=== PATIENT | female | born 1935 | race Caucasian/White ===

== ENCOUNTER 2017-01-31 14:46 | Emergency (ER) | payer MEDICARE, OTHER ==
[~2017-01-31] VITALS: Ht 160 cm; Wt 60.0 kg
[2017-01-31 15:01] VITALS: RESP 17; O2SAT 98
[2017-01-31 16:11] VITALS: BP 131/60; PULSE 67; RESP 17; TEMP 97.8; O2SAT 99
[2017-01-31] MEDS ORDERED: SODIUM CHLORID 0.9% 500 ML INJ 500 ML IV ONE (16:15)
--- NOTE | 2017-01-31 16:15 | PD ---
HPI Chief Complaint: Syncope/Near-Syncope Time Seen by Provider: 14:58 Travel History International Travel<30 days: No Contact w/Intl Traveler<30days: No Traveled to known affect area: No History of Present Illness HPI This is an 81-year-old female with a history of spasticity, who presents today via EMS after she had a near syncopal episode. According to the paramedics, she was sitting outside her longterm in her wheelchair and when she came inside she nearly fell forward in the chair. There is no reported true syncope. She was noted to have a low blood pressure when paramedics arrived. They gave her a fluid bolus which brought her blood pressure back up into the 120 systolic. The patient denied any chest pain, chest pressure. There is no reported headache. Patient also has a history of seizure disorder. There is no reported seizures at the time of the episode. She recalls the whole event. PFSH Past Medical History ?: Not Social History Tobacco Use: No Allergies-Medications (Allergen,Severity, Reaction): Coded Allergies: lidocaine (Verified Allergy, Intermediate, hives, 01/31/17) Sulfa (Sulfonamide Antibiotics) (Verified Allergy, Unknown, hives, 01/31/17 ) Reported Meds & Prescriptions Reported Meds & Active Scripts Active Cefuroxime (Cefuroxime Axetil) 250 Mg Tab 250 Mg PO BID 7 Days Reported Sinemet (Carbidopa/Levodopa) 25-250 Mg Tab 1 Tab PO Q8HR Mirtazapine 15 Mg Tab 15 Mg PO HS Mapap (Acetaminophen) 325 Mg Tab 650 Mg PO Q4-6H PRN Multiple Vitamin 1 Tab 1 Tab PO DAILY Sertraline (Sertraline HCl) 50 Mg Tab 50 Mg PO DAILY Dilantin (Phenytoin Extended) 100 Mg Cap 200 Mg PO HS Lisinopril 5 Mg Tab 5 Mg PO DAILY Donepezil 5 Mg Tab 5 Mg PO HS Review of Systems Except as stated in HPI: all other systems reviewed are Neg General / Constitutional: No: Fever, Chills HENT: No: Headaches, Neck Pain Cardiovascular: No: Chest Pain or Discomfort, Palpitations Respiratory: No: Cough, Shortness of Breath Gastrointestinal: No: Nausea, Vomiting, Abdominal Pain Genitourinary: No: Nocturia, Incontinence Musculoskeletal: No: Weakness, Pain Neurologic: Positive: Weakness (generalized), Syncope (near syncope), No: Headache, Change in Mentation, Incontinence Physical Exam Narrative GENERAL: Well-nourished, well-developed patient, in no acute distress. SKIN: Focused skin assessment warm/dry. HEAD: Normocephalic/atraumatic. EYES: No scleral icterus. No injection or drainage. NECK: Supple, trachea midline. No JVD or lymphadenopathy. CARDIOVASCULAR: Regular rate and rhythm without murmurs, gallops, or rubs. RESPIRATORY: Breath sounds equal bilaterally. No accessory muscle use. GASTROINTESTINAL: Abdomen soft, non-tender, nondistended. No rebound or guarding. MUSCULOSKELETAL: No cyanosis, or edema. NEUROLOGICAL: Awake and alert. Cranial nerves II through XII intact. Motor grossly within normal limits. Five out of 5 muscle strength in all muscle groups. Normal speech. Data Data Last Documented VS Vital Signs Date Time Temp Pulse Resp B/P (MAP) Pulse Ox O2 Delivery O2 Flow Rate FiO2 01/31/17 16:11 97.8 67 17 131/60 (83) 99 Room Air Orders Orders Electrocardiogram (01/31/17 14:58) Basic Metabolic Panel (Bmp) (01/31/17 14:58) Complete Blood Count With Diff (01/31/17 14:58) Ckmb (Isoenzyme) Profile (01/31/17 14:58) Troponin I (01/31/17 14:58) Urinalysis - C+S If Indicated (01/31/17 14:58) Chest, Single Ap (01/31/17 14:58) Ecg Monitoring (01/31/17 14:58) Iv Access Insert/Monitor (01/31/17 14:58) Oximetry (01/31/17 14:58) Sodium Chlorid 0.9% 500 Ml Inj (Ns 500 M (01/31/17 16:15) Urine Culture (01/31/17 15:30) Ceftriaxone Inj (Rocephin Inj) (01/31/17 17:15) Labs Laboratory Tests Test 01/31/17 15:20 01/31/17 15:30 White Blood Count 5.1 TH/MM3 Red Blood Count 3.59 MIL/MM3 Hemoglobin 12.1 GM/DL Hematocrit 35.8 % Mean Corpuscular Volume 99.8 FL Mean Corpuscular Hemoglobin 33.6 PG Mean Corpuscular Hemoglobin Concent 33.7 % Red Cell Distribution Width 13.2 % Platelet Count 199 TH/MM3 Mean Platelet Volume 8.0 FL Neutrophils (%) (Auto) 59.8 % Lymphocytes (%) (Auto) 30.7 % Monocytes (%) (Auto) 7.0 % Eosinophils (%) (Auto) 1.4 % Basophils (%) (Auto) 1.1 % Neutrophils # (Auto) 3.1 TH/MM3 Lymphocytes # (Auto) 1.6 TH/MM3 Monocytes # (Auto) 0.4 TH/MM3 Eosinophils # (Auto) 0.1 TH/MM3 Basophils # (Auto) 0.1 TH/MM3 CBC Comment DIFF FINAL Differential Comment Blood Urea Nitrogen 15 MG/DL Creatinine 0.63 MG/DL Random Glucose 99 MG/DL Calcium Level 8.2 MG/DL Sodium Level 139 MEQ/L Potassium Level 3.9 MEQ/L Chloride Level 106 MEQ/L Carbon Dioxide Level 27.0 MEQ/L Anion Gap 6 MEQ/L Estimat Glomerular Filtration Rate 91 ML/MIN Total Creatine Kinase 57 U/L Troponin I LESS THAN 0.02 NG/ML Urine Color YELLOW Urine Turbidity HAZY Urine pH 6.5 Urine Specific Sachse 1.014 Urine Protein NEG mg/dL Urine Glucose (UA) NEG mg/dL Urine Ketones NEG mg/dL Urine Occult Blood TRACE Urine Nitrite POS Urine Bilirubin NEG Urine Urobilinogen LESS THAN 2.0 MG/DL Urine Leukocyte Esterase LARGE Urine RBC 3 /hpf Urine WBC 64 /hpf Urine Squamous Epithelial Cells 3 /hpf Urine Transitional Epithelial Cells <1 /hpf Urine Bacteria RARE /hpf Urine Hyaline Casts 6 /lpf Microscopic Urinalysis Comment CULTURE INDICATED MDM Medical Decision Making Medical Screen Exam Complete: Yes Emergency Medical Condition: Yes Differential Diagnosis Cardiac arrhythmia versus vasovagal versus dehydration versus TIA Narrative Course 81-year-old female presents from the longterm after having a near syncopal episode. The patient apparently had a low blood pressure 1 paramedics arrived. They gave her 300 cc bolus of fluid which brought her pressure into the 120s systolic. The patient is awake. Urinalysis shows UTI. She's been given 1 g of Rocephin. Daughter was at the bedside states that she was recently started on Aricept 2 days ago. She was also had her Sinemet increased to 3 times daily. I spoke with Dr. Kruse, neurologist covering for her neurologist, Dr. Isidoro Noguera, who recommended holding the Aricept. He recommended we get orthostatic blood pressures while at the longterm. She should follow up with Dr. Noguera within one week. Diagnosis Primary Impression: Near syncope Additional Impressions: Cystitis possible adverse medication reaction History of Parkinson's disease Additional Instructions: Have nursing facility check orthostatic blood pressures daily. Follow up with Dr. Noguera in one week. Hold Aricept until told to restart by Dr. Noguera. Med/Other Pt SpecificInfo: Prescription(s) given Scripts Cefuroxime (Cefuroxime) 250 Mg Tab 250 MG PO BID for Infection for 7 Days, #14 TAB 0 Refills Prov: Vicente Headley MD 01/31/17 Disposition: 01 DISCHARGE HOME Condition: Stable Vicente Headley MD Jan 31, 2017 16:15
[2017-01-31 16:16] LABS: AUTOMATED NEUTROPHIL # 3.1 TH/MM3 (1.8-7.7); BASOPHIL # 0.1 TH/MM3 (0-0.2); BASOPHIL % 1.1 % (0.0-2.0); EOSINOPHIL # 0.1 TH/MM3 (0-0.4); EOSINOPHIL % 1.4 % (0.0-4.0); HEMATOCRIT 35.8 % (35.0-46.0); HEMO FLAGS DIFF FINAL; LYMPH % 30.7 % (9.0-44.0); LYMPHOCYTE # 1.6 TH/MM3 (1.0-4.8); MEAN CELL VOLUME 99.8 FL (80.0-100.0); MEAN CORPUSCULAR HEMOGLOBIN 33.6 PG (27.0-34.0); MEAN CORPUSCULAR HGB CONC 33.7 % (32.0-36.0); NEUT % 59.8 % (16.0-70.0); PLATELET COUNT 199 TH/MM3 (150-450); RED BLOOD COUNT 3.59 MIL/MM3 (4.00-5.30); RED CELL DISTRIBUTION WIDTH 13.2 % (11.6-17.2); WHITE BLOOD COUNT 5.1 TH/MM3 (4.0-11.0)
[2017-01-31 16:19] LABS: BACTERIA, URINE RARE /hpf; BLOOD, URINE TRACE (NEG); COMMENT (UR) CULTURE INDICATED; CULTURE IF INDICATED CULTURE INDICATED; GLUCOSE,URINE NEG (NEG); HYALINE CAST, URINE 6 /lpf (RARE); KETONE, URINE NEG (NEG); NITRITE,URINE POS (NEG); PH, URINE 6.5 (5.0-8.5); SQUAMOUS EPITHELIAL CELL URINE 3 /hpf (0-5); TRANSITIONAL EPI CELLS, URINE <1 /hpf; URINE COLOR YELLOW (YELLW/STRAW)
[2017-01-31 16:32] LABS: ANION GAP 6 MEQ/L (5-15); BLOOD UREA NITROGEN 15 MG/DL (7-18); CHLORIDE 106 MEQ/L (98-107); CREATINE KINASE 57 U/L (26-192); GLOMERULAR FILTRATION RATE 91 ML/MIN (>89); POTASSIUM 3.9 MEQ/L (3.5-5.1); SODIUM (NA) 139 MEQ/L (136-145)
[2017-01-31] MEDS ORDERED: DONE5TAB7 PO (17:01)
[2017-01-31] MEDS ORDERED: ARIC23TA PO (17:01)
[2017-01-31] MEDS ORDERED: LISI-519 PO (17:11)
[2017-01-31] MEDS ORDERED: DILA100C PO (17:11)
[2017-01-31] MEDS ORDERED: MAPA325T PO (17:11)
[2017-01-31] MEDS ORDERED: MULTTAB67 PO (17:11)
[2017-01-31] MEDS ORDERED: SERT-132 PO (17:11)
[2017-01-31] MEDS ORDERED: MIRTA15 PO (17:11)
[2017-01-31] MEDS ORDERED: [UNRECOGNIZED DRUG - CODE] PO (17:12)
[2017-01-31] MEDS ORDERED: cefTRIAXone INJ 1,000 MG in SODIUM CHLORIDE 0.9% INJ 100 ML IV ONE (17:15)
[2017-01-31] MEDS ORDERED: CEFU250T PO (17:25)
--- NOTE | 2017-01-31 18:15 | RADRPT ---
EXAM DATE/TIME: 01/31/2017 17:52 [facility] COMPARISON: No previous studies available for comparison. INDICATIONS : Palpitation. MEDICAL HISTORY : None. SURGICAL HISTORY : None. ENCOUNTER: Initial ACUITY: 1 day PAIN SCORE: 0/10 LOCATION: Bilateral chest FINDINGS: A single view of the chest demonstrates the lungs to be symmetrically aerated without evidence of mas s, infiltrate or effusion. The cardiomediastinal contours are unremarkable. Osseous structures are intact. CONCLUSION: No acute disease. Raffi Castaneda MD on January 31, 2017 at 18:14 Board Certified Radiologist. This report was verified electronically.
--- NOTE | 2017-02-01 05:11 | EKG ---
Date Performed: 01/31/2017 Time Performed: 15:30:12 PTAGE: 81 years EKG: Sinus rhythm PATTERN CONSISTENT WITH PULMONARY DISEASE INCOMPLETE RIGHT BUNDLE BRANCH BLOCK LEFT ANTERIOR FASCICU LAR BLOCK ABNORMAL ECG NO PREVIOUS TRACING DOCTOR: Devendra Wilkes Interpretating Date/Time 02/01/2017 05:06:23
== END 2017-01-31 20:36 | disposition home or self-care (01) ==
LOC: NEPC 14:46
DX: R55 Syncope and collapse (principal); N30.90 Cystitis, unspecified without hematuria; R53.1 Weakness; G20 Parkinson's disease; G40.909 Epilepsy, unspecified, not intractable, without status epilepticus; B96.20 Unspecified Escherichia coli [E. coli] as the cause of diseases classified elsewhere; I45.2 Bifascicular block; R94.31 Abnormal electrocardiogram [ECG] [EKG]; Z79.899 Other long term (current) drug therapy
CPT/HCPCS: 71010; 80048; 81001; 82550; 84484; 85025; 87077; 87086; 87186; 93005; 96361; 96365; 99285; J0696; J7040

== ENCOUNTER 2017-05-29 18:05 | Inpatient (IN) | payer MEDICARE, OTHER ==
[~2017-05-29] VITALS: Ht 160 cm; Wt 77.1 kg
[~2017-05-29 18:05] MED LIST: CEFU250T PO; DILA100C PO; DONE5TAB7 PO; LISI-519 PO; MAPA325T PO; MIRTA15 PO; MULTTAB67 PO; SERT-132 PO; [UNRECOGNIZED DRUG - CODE] PO
[2017-05-29 18:11] VITALS: BP 103/55; PULSE 97; RESP 16; TEMP 98.5
[2017-05-29 18:28] VITALS: O2SAT 91
[2017-05-29] MEDS ORDERED: SODIUM CHLORIDE 0.9% FLUSH 10 ML FLUSH IVF PRN (18:30)
[2017-05-29 18:42] LABS: AUTOMATED NEUTROPHIL # 10.9 TH/MM3 (1.8-7.7); BASOPHIL % 0.3 % (0.0-2.0); EOSINOPHIL # 0.1 TH/MM3 (0-0.4); EOSINOPHIL % 0.6 % (0.0-4.0); HEMATOCRIT 34.6 % (35.0-46.0); LYMPH % 9.5 % (9.0-44.0); LYMPHOCYTE # 1.3 TH/MM3 (1.0-4.8); MEAN CELL VOLUME 100.1 FL (80.0-100.0); MEAN CORPUSCULAR HEMOGLOBIN 34.8 PG (27.0-34.0); MEAN CORPUSCULAR HGB CONC 34.8 % (32.0-36.0); MEAN PLATELET VOLUME 8.2 FL (7.0-11.0); MONO % 10.1 % (0.0-8.0); MONOCYTE # 1.4 TH/MM3 (0-0.9); NEUT % 79.5 % (16.0-70.0); PLATELET COUNT 210 TH/MM3 (150-450); RED BLOOD COUNT 3.46 MIL/MM3 (4.00-5.30); RED CELL DISTRIBUTION WIDTH 13.5 % (11.6-17.2); WHITE BLOOD COUNT 13.8 TH/MM3 (4.0-11.0)
[2017-05-29 18:54] LABS: INTERNATIONAL NORMALIZED RATIO 1.1 RATIO; PROTHROMBIN TIME - PATIENT 10.9 SEC (9.8-11.6)
--- NOTE | 2017-05-29 19:03 | RADRPT ---
EXAM DATE/TIME: 05/29/2017 18:37 [facility] COMPARISON: CHEST SINGLE AP, January 31, 2017, 17:52. INDICATIONS : Hip pain post fall. MEDICAL HISTORY : None. SURGICAL HISTORY : None. ENCOUNTER: Initial ACUITY: 1 day PAIN SCORE: 0/10 LOCATION: Bilateral chest FINDINGS: Bilateral pulmonary infiltrates are noted consistent with moderate pulmonary edema versus pneumonia. Clinical correlation is recommended. The heart is stable. Degenerative changes and scoliosis of the t horacolumbar spine are noted. CONCLUSION: 1. Bilateral pulmonary infiltrates consistent with moderate pulmonary edema versus pneumonia. Clinica l correlation is recommended. 2. Degenerative changes and scoliosis of the thoracolumbar spine. Manuel Cardona MD on May 29, 2017 at 18:59 Board Certified Radiologist. This report was verified electronically.
[2017-05-29 19:12] LABS: ALT (GPT) LESS THAN 6 U/L (10-53)
[2017-05-29 19:14] LABS: ALKALINE PHOSPHATASE 118 U/L (45-117); TOTAL BILIRUBIN ADULT 1.2 MG/DL (0.2-1.0); TOTAL PROTEIN 6.8 GM/DL (6.4-8.2)
[2017-05-29 19:24] LABS: ALBUMIN 2.6 GM/DL (3.4-5.0); AST (GOT) 40 U/L (15-37); BICARBONATE 25.7 MEQ/L (21.0-32.0); BLOOD UREA NITROGEN 43 MG/DL (7-18); CALCIUM 8.5 MG/DL (8.5-10.1); CHLORIDE 99 MEQ/L (98-107); CREATININE 1.67 MG/DL (0.50-1.00); GLOMERULAR FILTRATION RATE 29 ML/MIN (>89); GLUCOSE,RANDOM 111 MG/DL (74-106); SODIUM (NA) 131 MEQ/L (136-145)
--- NOTE | 2017-05-29 19:42 | RADRPT ---
EXAM DATE/TIME: 05/29/2017 18:37 [facility] COMPARISON: No previous studies available for comparison. INDICATIONS : Hip pain post fall. MEDICAL HISTORY : None. SURGICAL HISTORY : None. ENCOUNTER: Initial ACUITY: 1 day PAIN SCORE: 10/10 LOCATION: Left Hip. FINDINGS: There is evidence of an acute subcapital fracture of the left proximal femur. Degenerative changes an d scoliosis of lumbar spine are noted. Mild degenerative changes involving the right hip are noted. CONCLUSION: Acute subcapital fracture involving the left proximal femur. Manuel Cardona MD on May 29, 2017 at 19:39 Board Certified Radiologist. This report was verified electronically.
--- NOTE | 2017-05-29 19:45 | PD ---
HPI Chief Complaint: Fall Time Seen by Provider: 18:42 Travel History International Travel<30 days: No Contact w/Intl Traveler<30days: No Traveled to known affect area: No History of Present Illness HPI 81-year-old female presents to the emergency room from a nursing facility for evaluation of left hip fracture. Patient fell 4 days ago. States she was walking backwards when she tripped and fell on her buttocks. She denies hitting her head or loss of consciousness. She has had left hip pain and inability to ambulate since then. Portable x-ray was obtained which showed a left hip fracture for which patient was sent to the emergency room. She denies significant pain. Worse when she tries to move. She has history of hypertension, Parkinson's, seizures, dementia. PFSH Past Medical History Anxiety: Yes Diminished Hearing: No Gastrointestinal Disorders: Yes GERD: Yes Hypertension: Yes Musculoskeletal: Yes (osteoporosis) Psychiatric: Yes Seizures: Yes ?: Not Past Surgical History Abdominal Surgery: Yes Hysterectomy: Yes Social History Alcohol Use: No Tobacco Use: No Substance Use: No Allergies-Medications (Allergen,Severity, Reaction): Coded Allergies: lidocaine (Verified Allergy, Intermediate, hives, 01/31/17) Sulfa (Sulfonamide Antibiotics) (Verified Allergy, Unknown, hives, 01/31/17 ) Reported Meds & Prescriptions Reported Meds & Active Scripts Active Cefuroxime (Cefuroxime Axetil) 250 Mg Tab 250 Mg PO BID 7 Days Reported Sinemet (Carbidopa/Levodopa) 25-250 Mg Tab 1 Tab PO Q8HR Mirtazapine 15 Mg Tab 15 Mg PO HS Mapap (Acetaminophen) 325 Mg Tab 650 Mg PO Q4-6H PRN Multiple Vitamin 1 Tab 1 Tab PO DAILY Sertraline (Sertraline HCl) 50 Mg Tab 50 Mg PO DAILY Dilantin (Phenytoin Extended) 100 Mg Cap 200 Mg PO HS Lisinopril 5 Mg Tab 5 Mg PO DAILY Donepezil 5 Mg Tab 5 Mg PO HS Review of Systems Except as stated in HPI: all other systems reviewed are Neg Physical Exam Narrative GENERAL: Well-nourished, well-developed female in no acute distress. Afebrile. Ambulatory. SKIN: Focused skin assessment warm/dry. HEAD: Normocephalic. EYES: No scleral icterus. No injection or drainage. NECK: Supple, trachea midline. No JVD or lymphadenopathy. Full range of motion of the neck. No midline tenderness. CARDIOVASCULAR: Regular rate and rhythm without murmurs, gallops, or rubs. RESPIRATORY: Breath sounds equal bilaterally. No accessory muscle use. MUSCULOSKELETAL: No cyanosis. No obvious edema. 2+ bounding dorsalis pedis pulse on the left. It is slightly shortened and externally rotated. Tenderness to palpation around the hip. Data Data Last Documented VS Vital Signs Date Time Temp Pulse Resp B/P (MAP) Pulse Ox O2 Delivery O2 Flow Rate FiO2 05/29/17 18:28 91 Nasal Cannula 2.00 05/29/17 18:11 98.5 97 16 103/55 (71) Orders Orders Electrocardiogram (05/29/17 18:21) Complete Blood Count With Diff (05/29/17 18:21) Comprehensive Metabolic Panel (05/29/17 18:21) Prothrombin Time / Inr (Pt) (05/29/17 18:21) Act Partial Throm Time (Ptt) (05/29/17 18:21) Urinalysis - C+S If Indicated (05/29/17 18:21) Type And Screen (05/29/17 18:21) Chest, Single Ap (05/29/17 18:21) Hip, Uni(Ap&Lat) W Ap Pelvis (05/29/17 18:21) Iv Access Insert/Monitor (05/29/17 18:21) Oximetry (05/29/17 18:21) Ecg Monitoring (05/29/17 18:21) Sodium Chloride 0.9% Flush (Ns Flush) (05/29/17 18:30) Sodium Chlor 0.9% 1000 Ml Inj (Ns 1000 M (05/29/17 21:00) Admit Order (Ed Use Only) (05/29/17 20:56) Labs Laboratory Tests Test 05/29/17 18:20 White Blood Count 13.8 TH/MM3 Red Blood Count 3.46 MIL/MM3 Hemoglobin 12.0 GM/DL Hematocrit 34.6 % Mean Corpuscular Volume 100.1 FL Mean Corpuscular Hemoglobin 34.8 PG Mean Corpuscular Hemoglobin Concent 34.8 % Red Cell Distribution Width 13.5 % Platelet Count 210 TH/MM3 Mean Platelet Volume 8.2 FL Neutrophils (%) (Auto) 79.5 % Lymphocytes (%) (Auto) 9.5 % Monocytes (%) (Auto) 10.1 % Eosinophils (%) (Auto) 0.6 % Basophils (%) (Auto) 0.3 % Neutrophils # (Auto) 10.9 TH/MM3 Lymphocytes # (Auto) 1.3 TH/MM3 Monocytes # (Auto) 1.4 TH/MM3 Eosinophils # (Auto) 0.1 TH/MM3 Basophils # (Auto) 0.0 TH/MM3 CBC Comment DIFF FINAL Differential Comment Prothrombin Time 10.9 SEC Prothromb Time International Ratio 1.1 RATIO Activated Partial Thromboplast Time 26.9 SEC Blood Urea Nitrogen 43 MG/DL Creatinine 1.67 MG/DL Random Glucose 111 MG/DL Total Protein 6.8 GM/DL Albumin 2.6 GM/DL Calcium Level 8.5 MG/DL Alkaline Phosphatase 118 U/L Aspartate Amino Transf (AST/SGOT) 40 U/L Alanine Aminotransferase (ALT/SGPT) LESS THAN 6 U/L Total Bilirubin 1.2 MG/DL Sodium Level 131 MEQ/L Potassium Level 4.5 MEQ/L Chloride Level 99 MEQ/L Carbon Dioxide Level 25.7 MEQ/L Anion Gap 6 MEQ/L Estimat Glomerular Filtration Rate 29 ML/MIN [facility] Medical Decision Making Medical Screen Exam Complete: Yes Emergency Medical Condition: Yes Medical Record Reviewed: Yes Differential Diagnosis Hip fracture, contusion, abrasion, strain, sprain Narrative Course 81-year-old female presents to the emergency room for evaluation of left hip fracture. Patient had a mechanical fall 4 days ago at a alf. She had portable x-ray for which the results were obtained today which showed hip fracture and she was sent to the ED today. Physical exam reveals left lower extremity is externally rotated and slightly shortened. There is 2+ bounding dorsalis pedis pulse. Patient's pain is well controlled and she consistently declines pain medication. IV access established and basic labs obtained. CBC is essentially unremarkable; patient has mild leukocytosis. CMP is essentially unremarkable. Patient has mild elevation of BUN and creatinine and low sodium. She was given 1 L of fluids. Preop chest x-ray shows bilateral pulmonary infiltrates consistent with moderate pulmonary edema versus pneumonia. Patient denies any recent coughs. Repeat hip x-ray here shows acute subcapital fracture involving the left proximal femur. I spoke to the orthopedic surgeon on-call, Dr. Kumar, who recommends nothing by mouth after midnight for surgical fixation tomorrow. Likely performed by Dr. Thomas. I spoke to the admitting physician Dr. Cotter who agrees to accept this patient to her service. Diagnosis Primary Impression: Closed left hip fracture Qualified Codes: S72.002A - Fracture of unspecified part of neck of left femur , initial encounter for closed fracture Admitting Information Admitting Physician Requests: Admit Condition: Stable Sangita Abel May 29, 2017 19:45
[2017-05-29 21:00] VITALS: BP 83/43; PULSE 70; RESP 16; O2SAT 92
[2017-05-29] MEDS ORDERED: SODIUM CHLOR 0.9% 1000 ML INJ 1,000 ML IV ONE (21:00)
[2017-05-29] MEDS ORDERED: SODIUM CHLOR 0.9% 1000 ML INJ 1,000 ML IV SCH (21:19)
[2017-05-29 21:30] VITALS: BP 108/55; PULSE 90; RESP 16; O2SAT 92
[2017-05-29] MEDS ORDERED: ONDANSETRON HCL 4 MG/2 ML VIAL IVP PRN (21:30)
[2017-05-29] MEDS ORDERED: SODIUM CHLORIDE 0.9% FLUSH 10 ML FLUSH IV FLUSH PRN (21:30)
[2017-05-29] MEDS ORDERED: MAGNESIUM HYDROXIDE SUSP 30 ML CUP PO PRN (21:30)
[2017-05-29] MEDS ORDERED: ACETAMINOPHEN 325 MG TAB PO PRN (21:30)
[2017-05-29] MEDS ORDERED: LACTULOSE SYRUP 20 GM/30 ML CUP PO PRN (21:30)
[2017-05-29] MEDS ORDERED: MORPHINE SULFATE 4 MG/ML INJ IV PUSH PRN (21:30)
[2017-05-29] MEDS ORDERED: NALOXONE HCL 0.4 MG/ML AMP IV PUSH PRN (21:30)
[2017-05-29] MEDS ORDERED: BISACODYL 10 MG SUPP RECTAL PRN (21:30)
[2017-05-29] MEDS ORDERED: SENNOSIDES 8.6 MG TAB PO PRN (21:30)
[2017-05-29] MEDS ORDERED: OMEP20TA93 PO (23:34)
[2017-05-29] MEDS ORDERED: MELA5 PO (23:34)
[2017-05-29] MEDS ORDERED: SENN8.8S7 PO (23:34)
[2017-05-29] MEDS ORDERED: POLY120S EACH EYE (23:34)
[2017-05-29] MEDS ORDERED: [UNRECOGNIZED DRUG - CODE] PO (23:34)
[2017-05-29] MEDS ORDERED: ZOFR4TAB PO (23:34)
[2017-05-29] MEDS ORDERED: CRANCAP2 PO (23:34)
[2017-05-29] MEDS ORDERED: MAGN500T2 PO (23:34)
[2017-05-29] MEDS ORDERED: CRANPOW2 PO (23:35)
[2017-05-29] MEDS ORDERED: TAB A VITE PO (23:35)
[2017-05-29] MEDS ORDERED: CLAR10CA3 PO (23:35)
[2017-05-29 23:38] VITALS: BP 99/54; PULSE 81; RESP 15; TEMP 97.8; O2SAT 97
[2017-05-30] VITALS (16 sets, daily range): BP systolic 70–134; BP diastolic 36–64; PULSE 78–99; RESP 20–29; TEMP 98.1–98.6; O2SAT 88–98
--- NOTE | 2017-05-30 01:26 | RADRPT ---
EXAM DATE/TIME: 05/30/2017 01:17 [facility] COMPARISON: No previous studies available for comparison. INDICATIONS : Altered mental status. RADIATION DOSE: 56.35 CTDIvol (mGy) MEDICAL HISTORY : Seizures. Hypertension. SURGICAL HISTORY : None. ENCOUNTER: Initial ACUITY: 1 day PAIN SCALE: Non-responsive LOCATION: cranial TECHNIQUE: Multiple contiguous axial images were obtained of the head. Using automated exposure control and adj ustment of the mA and/or kV according to patient size, radiation dose was kept as low as reasonably a chievable to obtain optimal diagnostic quality images. DICOM format image data is available electro nically for review and comparison. FINDINGS: There is mild volume loss patchy periventricular white matter disease to be chronic in appearance. No signs of acute infarct, hemorrhage or mass. No fractures. CONCLUSION: No acute disease. Steven Hunt MD on May 30, 2017 at 1:24 Board Certified Radiologist. This report was verified electronically.
[2017-05-30] MEDS ORDERED: NALOXONE HCL 0.4 MG/ML AMP IV PUSH ONE (01:30)
--- NOTE | 2017-05-30 01:32 | HHI.PR ---
Addendum to Inpatient Note Addendum Reason: Additional Documentation Additional Information Responded to Cherylt on [facility]. Subjective 81 yo female with h/o dementia, Parkinson's disease, hypertension admitted for left hip fracture. Received morphine 4 mg in EVAC. On ED arrival was reported to be conversing normally, but by time of admission was unresponsive. Now does not awaken to stimulation and has hypotension with SBP to 70s. Objective VS: T 98.3 axillary, BP 91/43, HR 90, R 16 Gen: Thin frail elderly white woman sitting up in bed in NAD but unresponsive Eyes: Pupils narrow but not pinpoint CV: NRRR, normal S1/S2, no murmur Resp: Bibasilar crackles, no distress Neuro: Groaned occasionally to sternal rub. Cogwheel rigidity of BUE. Unable to awaken to follow commands. A/P 81 yo female with dementia, Parkinson's, hypertension admitted for hip fracture now with hypotension and decreased responsiveness in setting of morphine dose of 4 mg at approx 1600. - Narcan 0.4 mg IV x1 - CT head w/o contrast (previously ordered) - Oxygen as needed - BP stable with MAP > 60, continue to monitor - Continue MIVF dw Dr. Marika mixonw Demetrius Brunson MD May 30, 2017 01:32
--- NOTE | 2017-05-30 01:37 | HHI.HP ---
[facility] Service [facility] Primary Care Physician Unknown Admission Diagnosis left hip fracture Diagnoses: Travel History International Travel<30 Days: No Contact w/Intl Traveler <30 Da: No Traveled to Known Affected Are: No History of Present Illness 81-year-old female with a past medical history significant for hypertension, Parkinson's disease, seizures and dementia presents to the emergency department for evaluation of the left hip fracture. The patient lives in a nursing facility and had a mechanical fall 4 days ago. At the time of my examination, the patient will turn her head to verbal stimulation however does not answer questions. ER documentation, the patient reports she was walking backwards when she tripped and fell on her buttocks. She denies any head trauma or loss of consciousness. She has had left hip pain and inability to ambulate for the past 4 days. Review of Systems ROS Limitations: Clinical Condition Unable to obtain secondary to clinical condition Past Family Social History Past Medical History (Obtained from medical records) Hypertension Parkinson's Seizures Dementia Past Surgical History Unable to obtain Reported Medications Reported Meds & Active Scripts Active Reported Claritin (Loratadine) 10 Mg Cap 10 Mg PO DAILY PRN [Cranberry] 450 Mg PO TID [Tab A Fredi] 1 Tab PO DAILY Melatonin 5 Mg Tab 3 Mg PO HS PRN Senna (Sennosides) 8.8 Mg/5 Ml Syp 2 Tab PO HS Zofran (Ondansetron HCl) 4 Mg Tab 4 Mg PO Q6HR PRN Diff-Stat (Probiotic Product) 7.5B-1B Pow 1 Cap PO BID Cranberry Urinary Comfort (Vitamins C & E) 1 Cap 1 Cap PO DAILY Magnesium Oxide 500 Mg Tab 500 Mg PO DAILY Liquitears Opth (Polyvinyl Alcohol) 1.4% Soln 1 Drop EACH EYE Q8HR PRN Omeprazole 20 Mg Tab 20 Mg PO DAILY Sinemet (Carbidopa/Levodopa) 25-250 Mg Tab 1 Tab PO Q8HR Mirtazapine 15 Mg Tab 15 Mg PO HS Mapap (Acetaminophen) 325 Mg Tab 650 Mg PO Q4-6H PRN Sertraline (Sertraline HCl) 50 Mg Tab 75 Mg PO DAILY Dilantin (Phenytoin Extended) 100 Mg Cap 400 Mg PO HS Lisinopril 5 Mg Tab 10 Mg PO DAILY Donepezil 5 Mg Tab 5 Mg PO HS Allergies: Coded Allergies: lidocaine (Verified Allergy, Intermediate, hives, 01/31/17) Sulfa (Sulfonamide Antibiotics) (Verified Allergy, Unknown, hives, 01/31/17 ) Family History Unable to obtain Social History Unable to obtain Physical Exam Vital Signs Vital Signs Date Time Temp Pulse Resp B/P (MAP) Pulse Ox O2 Delivery O2 Flow Rate FiO2 05/29/17 21:30 90 16 108/55 (72) 92 Nasal Cannula 2.00 05/29/17 21:00 70 16 83/43 (56) 92 Nasal Cannula 2.00 05/29/17 18:28 91 Nasal Cannula 2.00 05/29/17 18:17 Room Air 05/29/17 18:11 98.5 97 16 103/55 (71) Physical Exam GENERAL: Thin, female lying in bed. SKIN: No rashes, ecchymoses or lesions. Cool and dry. HEAD: Atraumatic. Normocephalic. EYES: Pupils pinpoint. Extraocular motions intact. No scleral icterus. No injection or drainage. ENT: Nose without bleeding, purulent drainage or septal hematoma. Airway patent. NECK: Trachea midline. No JVD or lymphadenopathy. CARDIOVASCULAR: Regular rate and rhythm without murmurs, gallops, or rubs. RESPIRATORY: Clear to auscultation. Breath sounds equal bilaterally. No wheezes , rales, or rhonchi. GASTROINTESTINAL: Abdomen soft, non-tender, nondistended. No hepato-splenomegaly , or palpable masses. MUSCULOSKELETAL: Extremities without clubbing, cyanosis, or edema. Bilateral lower extremities neurovascularly intact. NEUROLOGICAL: Tracks to voice. Does not answer questions. Does not follow commands. Laboratory Laboratory Tests Test 05/29/17 18:20 White Blood Count 13.8 Red Blood Count 3.46 Hemoglobin 12.0 Hematocrit 34.6 Mean Corpuscular Volume 100.1 Mean Corpuscular Hemoglobin 34.8 Mean Corpuscular Hemoglobin Concent 34.8 Red Cell Distribution Width 13.5 Platelet Count 210 Mean Platelet Volume 8.2 Neutrophils (%) (Auto) 79.5 Lymphocytes (%) (Auto) 9.5 Monocytes (%) (Auto) 10.1 Eosinophils (%) (Auto) 0.6 Basophils (%) (Auto) 0.3 Neutrophils # (Auto) 10.9 Lymphocytes # (Auto) 1.3 Monocytes # (Auto) 1.4 Eosinophils # (Auto) 0.1 Basophils # (Auto) 0.0 CBC Comment DIFF FINAL Differential Comment Prothrombin Time 10.9 Prothromb Time International Ratio 1.1 Activated Partial Thromboplast Time 26.9 Blood Urea Nitrogen 43 Creatinine 1.67 Random Glucose 111 Total Protein 6.8 Albumin 2.6 Calcium Level 8.5 Alkaline Phosphatase 118 Aspartate Amino Transf (AST/SGOT) 40 Alanine Aminotransferase (ALT/SGPT) LESS THAN 6 Total Bilirubin 1.2 Sodium Level 131 Potassium Level 4.5 Chloride Level 99 Carbon Dioxide Level 25.7 Anion Gap 6 Estimat Glomerular Filtration Rate 29 Result Diagram: 05/29/17181905/29/171819 Caprini VTE Risk Assessment Caprini VTE Risk Assessment: Mod/High Risk (score >= 2) Caprini Risk Assessment Model Point Value = 1 Point Value = 2 Point Value = 3 Point Value = 5 Age 41-60 Minor surgery BMI > 25 kg/m2 Swollen legs Varicose veins or History of unexplained or recurrent spontaneous Oral contraceptives or hormone replacement Sepsis (< 1 month) Serious lung disease, including pneumonia (< 1 month) Abnormal pulmonary function Acute myocardial infarction Congestive heart failure (< 1 month) History of inflammatory bowel disease Medical patient at bed rest Age 61-74 Arthroscopic surgery Major open surgery (> 45 min) Laparoscopic surgery (> 45 min) Malignancy Confined to bed (> 72 hours) Immobilizing plaster cast Central venous access Age >= 75 History of VTE Family history of VTE Factor V Leiden Prothrombin 81005S Lupus anticoagulant Anticardiolipin antibodies Elevated serum homocysteine Heparin-induced thrombocytopenia Other congenital or acquired thrombophilia Stroke (< 1 month) Elective arthroplasty Hip, pelvis, or leg fracture Acute spinal cord injury (< 1 month) Prophylaxis Regimen Total Risk Factor Score Risk Level Prophylaxis Regimen 0-1 Low Early ambulation 2 Moderate Order ONE of the following: *Sequential Compression Device (SCD) *Heparin 5000 units SQ BID 3-4 Higher Order ONE of the following medications: *Heparin 5000 units SQ TID *Enoxaparin/Lovenox 40 mg SQ daily (WT < 150 kg, CrCl > 30 mL/min) *Enoxaparin/Lovenox 30 mg SQ daily (WT < 150 kg, CrCl > 10-29 mL/min) *Enoxaparin/Lovenox 30 mg SQ BID (WT < 150 kg, CrCl > 30 mL/min) AND/OR *Sequential Compression Device (SCD) 5 or more Highest Order ONE of the following medications: *Heparin 5000 units SQ TID (Preferred with Epidurals) *Enoxaparin/Lovenox 40 mg SQ daily (WT < 150 kg, CrCl > 30 mL/min) *Enoxaparin/Lovenox 30 mg SQ daily (WT < 150 kg, CrCl > 10-29 mL/min) *Enoxaparin/Lovenox 30 mg SQ BID (WT < 150 kg, CrCl > 30 mL/min) AND *Sequential Compression Device (SCD) Assessment and Plan Assessment and Plan Assessment/plan: 1. Left hip fracture Pelvic x-ray significant for acute subcapital fracture involving the left proximal femur Orthopedic surgery consulted, appreciate recommendations Nothing by mouth Morphine for pain 2. Altered mental status Spoke to ED provider length regarding patient's mental status on arrival to the emergency department. Per ED report, the patient was talking however very confused and agitated. She continued to try to climb out of bed but would answer questions. At this time the patient is not answering questions and will track to voice with her eyes. Ana was called, stat head CT ordered. Patient was given 4 mg morphine by EMS. She will be given 4 mg of Narcan. Mental status will be reassessed. Holding IV pain medication. 3. AMBER Cr 1.67, baseline 0.63 IVF hydration Monitor renal function 4. Hypertension Continue home medications 5. Seizure disorder Continue home Dilantin 6. Parkinson's disease Continue home Sinemet 7. Dementia Continue home medications FEN NPO Electrolytes: monitor and replete prn NS at 75 cc/hr The pharmacologic anticoagulation in anticipation of operative intervention later today Physician Certification 2 Midnight Certification Type: Admission for Inpatient Services Order for Inpatient Services The services are ordered in accordance with Medicare regulations or non- Medicare payer requirements, as applicable. In the case of services not specified as inpatient-only, they are appropriately provided as inpatient services in accordance with the 2-midnight benchmark. Estimated LOS (days): 2 2 days is the estimated time the patient will need to remain in the hospital, assuming treatment plan goals are met and no additional complications. Post-Hospital Plan: Not yet determined Concha Cotter MD May 30, 2017 01:37
--- NOTE | 2017-05-30 01:53 | RADRPT ---
EXAM DATE/TIME: 05/30/2017 01:40 [place] COMPARISON: No previous studies available for comparison. INDICATIONS : Low O2 SATS, Pt was Halicat MEDICAL HISTORY : Hypertension. Seizures SURGICAL HISTORY : None. ENCOUNTER: Subsequent ACUITY: 2 days PAIN SCORE: Non-responsive. LOCATION: Bilateral chest FINDINGS: There is diffuse bilateral confluent airspace disease identified. Cardiomegaly and aortic calcificati on. Degenerative changes of the spine. CONCLUSION: Diffuse bilateral infiltrates. Steven Hunt MD on May 30, 2017 at 1:50 Board Certified Radiologist. This report was verified electronically.
[2017-05-30 03:00] LABS: BACTERIA, URINE MANY /hpf; BLOOD, URINE SMALL (NEG); GLUCOSE,URINE NEG (NEG); KETONE, URINE NEG (NEG); MUCUS URINE FEW /lpf (OCC); NITRITE,URINE NEG (NEG); PH, URINE 5.5 (5.0-8.5); SQUAMOUS EPITHELIAL CELL URINE <1 /hpf (0-5); URINE COLOR YELLOW (YELLW/STRAW); URINE LEUKOCYTE ESTERASE LARGE (NEG)
[2017-05-30] MEDS ORDERED: cefTRIAXone INJ 1,000 MG in SODIUM CHLORIDE 0.9% INJ 100 ML IV SCH (03:00)
[2017-05-30] MEDS ORDERED: SODIUM CHLOR 0.9% 1000 ML INJ 1,000 ML IV ONE ×2 (03:00→04:30)
[2017-05-30 03:02] LABS: BILIRUBIN, URINE NEG (NEG)
[2017-05-30] MEDS ORDERED: ARTIFICIAL TEARS OPTH SOLN 15 ML BTL EACH EYE PRN (03:15)
[2017-05-30] MEDS ORDERED: LORATADINE 10 MG TAB PO PRN (03:15)
[2017-05-30] MEDS: AZITHROMYCIN INJ 500 MG in SODIUM CHLOR 0.9% 250 ML INJ 250 ML IV SCH (03:58)
[2017-05-30] MEDS ORDERED: NOREPINEPHRINE-DEXTROSE DRIP 250 ML IV PRN (04:30)
[2017-05-30] MEDS ORDERED: TERBUTALINE INJ 1 MG/ML AMP SQ PRN (04:30)
--- NOTE | 2017-05-30 04:39 | HHI.PR ---
Addendum to Inpatient Note Addendum Reason: Additional Documentation Additional Information Patient was a Halicat due to AMS and lethargy. 1L NS bolus given and CT head was ordered and she was transferred to the unit. While in the unit patient regained a normal BP for a short time then became hypotension again. 1L NS bolus given again. Head CT reviewed and showed no acute abnormalities. UA ordered and shows a UTI. Chest xray reviewed and shows bilateral infiltrates. Antibiotics Rocephin and Zithromax started, lactic acid ordered. Patient did not respond the 2nd fluid bolus. Discussed case with Dr. Nugent. 3rd NS bolus ordered, start levophed if no response to extra bolus. Consult placed to Dr. Nugent, he will resume care. Nayla Chavez May 30, 2017 04:39
[2017-05-30] MEDS: CARBIDOPA/LEVODOPA 25 MG/250 MG TAB PO SCH ×3 (05:08→23:06)
--- NOTE | 2017-05-30 05:24 | PD.CONS ---
[facility] Service Critical Care Medicine Consult Requested By Dr. Cotter Reason for Consult Septic shock Acute hypoxemic respiratory failure Healthcare associated pneumonia UTI Acute left hip fracture Acute kidney failure Primary Care Physician Unknown History of Present Illness Patient is a 81-year-old female with a past medical history significant for hypertension, seizure disorder, Parkinson's disease, and dementia presented to the emergency department for left hip pain. Apparently patient had sustained a mechanical fall at the alf about 4 days ago. X-ray hip showed acute subcapital fracture involving the left proximal femur. Patient was admitted to the hospitalist service. A Halicat was called at about 0130 today due to AMS and lethargy, and hypotension. 1L NS bolus given and and she was transferred to the unit. Transiently responded to fluid bolus, but became hypotension again. Additional fluid boluses were given. Chest x-ray showed bilateral diffuse infiltrates, and UA showed evidence of UTI. Patient was started on Rocephin and azithromycin by the hospitalist. Critical care medicine was consulted at about 0445 AM due to persistent hypotension/septic shock. I evaluated the patient in the ICU. She appears ill, tachypneic. Hypotensive after 3 L boluses. Chest x-ray shows diffuse infiltrates. I will clarify CODE STATUS with family, patient may need endotracheal intubation and further resuscitation, and also central line placement. I have DC'd Rocephin and started on Zosyn. Give 1 dose of vancomycin and continue azithromycin Review of Systems ROS Limitations: Clinical Condition, Altered Mental Status Past Family Social History Allergies: Coded Allergies: lidocaine (Verified Allergy, Intermediate, hives, 01/31/17) Sulfa (Sulfonamide Antibiotics) (Verified Allergy, Unknown, hives, 01/31/17 ) Past Medical History Hypertension Parkinson's disease Seizures Dementia Past Surgical History Unable to obtain Reported Medications Sinemet (Carbidopa/Levodopa) 25-250 Mg Tab 1 Tab PO Q8HR Mirtazapine 15 Mg Tab 15 Mg PO HS Mapap (Acetaminophen) 325 Mg Tab 650 Mg PO Q4-6H PRN Multiple Vitamin 1 Tab 1 Tab PO DAILY Sertraline (Sertraline HCl) 50 Mg Tab 50 Mg PO DAILY Dilantin (Phenytoin Extended) 100 Mg Cap 200 Mg PO HS Lisinopril 5 Mg Tab 5 Mg PO DAILY Donepezil 5 Mg Tab 5 Mg PO HS Active Ordered Medications Reviewed Family History Unable to obtain due to altered mental status Social History Unable to obtain Physical Exam Vital Signs Vital Signs Date Time Temp Pulse Resp B/P (MAP) Pulse Ox O2 Delivery O2 Flow Rate FiO2 05/30/17 04:00 98.4 86 20 83/51 (62) 05/30/17 04:00 86 05/30/17 02:01 97 Simple Mask 6.00 05/30/17 02:00 93 05/30/17 01:31 70/36 (47) 05/30/17 01:30 88 76/48 (57) 05/30/17 00:55 95 10.00 05/30/17 00:55 95 Simple Mask 10.00 05/30/17 00:55 Simple Mask 05/29/17 21:45 Room Air 05/29/17 21:30 90 16 108/55 (72) 92 Nasal Cannula 2.00 05/29/17 21:00 70 16 83/43 (56) 92 Nasal Cannula 2.00 05/29/17 18:28 91 Nasal Cannula 2.00 05/29/17 18:17 Room Air 05/29/17 18:11 98.5 97 16 103/55 (71) Physical Exam GENERAL: Thin, female lying in bed. Tachypneic. In moderate distress SKIN: No rashes, ecchymoses or lesions. Cool and dry. HEAD: Atraumatic. Normocephalic. EYES: Pupils pinpoint. No injection or drainage. ENT: Nose without bleeding. Airway patent. NECK: Trachea midline. No JVD or lymphadenopathy. CARDIOVASCULAR: Regular rate and rhythm without murmurs, gallops, or rubs. Hypotensive RESPIRATORY: Bilateral Rales and rhonchi. Tachypneic with use of accessory muscles GASTROINTESTINAL: Abdomen soft, non-tender, nondistended. MUSCULOSKELETAL: Extremities without clubbing, cyanosis, or edema. L hip tender to movements NEUROLOGICAL: Awake, follows commandsx4. Does not answer questions. Laboratory Laboratory Tests Test 05/29/17 18:20 05/30/17 01:05 05/30/17 02:40 White Blood Count 13.8 Red Blood Count 3.46 Hemoglobin 12.0 Hematocrit 34.6 Mean Corpuscular Volume 100.1 Mean Corpuscular Hemoglobin 34.8 Mean Corpuscular Hemoglobin Concent 34.8 Red Cell Distribution Width 13.5 Platelet Count 210 Mean Platelet Volume 8.2 Neutrophils (%) (Auto) 79.5 Lymphocytes (%) (Auto) 9.5 Monocytes (%) (Auto) 10.1 Eosinophils (%) (Auto) 0.6 Basophils (%) (Auto) 0.3 Neutrophils # (Auto) 10.9 Lymphocytes # (Auto) 1.3 Monocytes # (Auto) 1.4 Eosinophils # (Auto) 0.1 Basophils # (Auto) 0.0 CBC Comment DIFF FINAL Differential Comment Prothrombin Time 10.9 Prothromb Time International Ratio 1.1 Activated Partial Thromboplast Time 26.9 Blood Urea Nitrogen 43 Creatinine 1.67 Random Glucose 111 Total Protein 6.8 Albumin 2.6 Calcium Level 8.5 Alkaline Phosphatase 118 Aspartate Amino Transf (AST/SGOT) 40 Alanine Aminotransferase (ALT/SGPT) LESS THAN 6 Total Bilirubin 1.2 Sodium Level 131 Potassium Level 4.5 Chloride Level 99 Carbon Dioxide Level 25.7 Anion Gap 6 Estimat Glomerular Filtration Rate 29 Blood Gas Puncture Site RT RADIAL Blood Gas Patient Temperature 98.6 Blood Gas HCO3 18 Blood Gas Base Excess -6.2 Blood Gas Oxygen Saturation 91 Arterial Blood pH 7.40 Arterial Blood Partial Pressure CO2 29 Arterial Blood Partial Pressure O2 72 Arterial Blood Oxygen Content 13.8 Arterial Blood Carboxyhemoglobin 2.1 Arterial Blood Methemoglobin 0.7 Blood Gas Hemoglobin 10.7 Oxygen Delivery Device SIMPLE MASK Blood Gas Liter Flow 10 Urine Color YELLOW Urine Turbidity HAZY Urine pH 5.5 Urine Specific Glade 1.020 Urine Protein 30 Urine Glucose (UA) NEG Urine Ketones NEG Urine Occult Blood SMALL Urine Nitrite NEG Urine Bilirubin NEG Urine Urobilinogen 2.0 Urine Leukocyte Esterase LARGE Urine RBC 4 Urine WBC 23 Urine Squamous Epithelial Cells <1 Urine Bacteria MANY Urine Mucus FEW Microscopic Urinalysis Comment CATH-CULTURE IND Date/Time Source Procedure Growth Status 05/30/17 02:40 Urine Catheterized Urine Urine Culture Pending Received Result Diagram: 05/29/17 1820 05/29/17 1820 Imaging CXR bilateral diffuse infiltrates Septic Shock Reassessment Septic shock perfusion: reassessment completed Assessment and Plan Assessment and Plan ASSESSMENT: Septic shock Acute hypoxemic respiratory failure Healthcare associated pneumonia UTI Acute metabolic encephalopathy Metabolic acidosis Acute kidney failure Acute left hip fracture Parkinson's disease Seizure disorder Dementia PLAN: NEURO: - Metabolic encephalopathy most likely secondary to sepsis - Monitor neuro status closely - Continue Dilantin and Sinemet RESP: - Nasal cannula oxygen to keep saturation more than 90% - DuoNeb every 6 hours scheduled and when necessary - Sputum culture, check influenza - Broad-spectrum antibiotics with Zosyn and azithromycin CV: - Normal saline IV fluids 4 L bolus given - Check lactic acid - Bicarbonate 1 amp IV push followed by bicarbonate infusion at 100 ML per hour GI: - Nothing by mouth except meds - IV famotidine : - Monitor renal function closely. Place Hardy catheter. - Monitor intake and output strictly ID: - IV vancomycin 1GM x1. Discontinue ceftriaxone, started Zosyn renally dosed and continue azithromycin - Urine blood and sputum culture requested. Check for influenza HEME: - Monitor CBC, CMP MSK: - Left hip fracture: Patient not stable for surgical intervention at this time ENDO: - Electrolyte replacement per protocol PROPH: - Bilateral lower extremity SCDs. Lovenox/Famotidine LINES: Utilize peripheral IVs, central line if needed CC time 45 min Patient is at this time critically ill with multiorgan failure, and septic shock. In this elderly lady, multiorgan failure severe sepsis pneumonia with accompanying hip fracture could be terminal. Await daughter's arrival to bedside, address CODE STATUS Code Status Full Summer Nugent MD May 30, 2017 05:24
[2017-05-30] MEDS ORDERED: VANCOMYCIN INJ 1,000 MG in SODIUM CHLOR 0.9% 250 ML INJ 250 ML IV ONE (05:30)
[2017-05-30] MEDS ORDERED: SODIUM BICARBONATE 8.4% INJ 50 MEQ/50 ML SYR IV PUSH ONE (05:30)
[2017-05-30] MEDS ORDERED: SODIUM BICARBONATE 8.4% INJ 150 MEQ in WATER STERILE FOR INJ 850 ML IV SCH (05:30)
[2017-05-30] MEDS: PIPERACIL-TAZO 3.375 GM PREMIX 50 ML IV SCH ×3 (05:31→20:46)
[2017-05-30 05:37] LABS: AUTOMATED NEUTROPHIL # 8.5 TH/MM3 (1.8-7.7); BASOPHIL % 0.2 % (0.0-2.0); EOSINOPHIL % 0.1 % (0.0-4.0); HEMOGLOBIN 10.8 GM/DL (11.6-15.3); LYMPHOCYTE # 0.9 TH/MM3 (1.0-4.8); MEAN CELL VOLUME 101.2 FL (80.0-100.0); MEAN CORPUSCULAR HEMOGLOBIN 35.2 PG (27.0-34.0); MEAN CORPUSCULAR HGB CONC 34.8 % (32.0-36.0); MEAN PLATELET VOLUME 7.7 FL (7.0-11.0); MONO % 8.3 % (0.0-8.0); MONOCYTE # 0.9 TH/MM3 (0-0.9); NEUT % 82.4 % (16.0-70.0); PLATELET COUNT 187 TH/MM3 (150-450); RED BLOOD COUNT 3.06 MIL/MM3 (4.00-5.30); RED CELL DISTRIBUTION WIDTH 13.6 % (11.6-17.2); WHITE BLOOD COUNT 10.3 TH/MM3 (4.0-11.0)
[2017-05-30] MEDS ORDERED: RESP: ALBUTEROL 2.5 MG/IPRATROPIUM 0.5 MG NEB (PRN) NEB (05:45)
[2017-05-30] MEDS: SODIUM BICARBONATE 8.4% INJ 150 MEQ in DEXTROSE 5% IN WATE 1000ML INJ 850 ML IV SCH ×4 (05:50→16:00)
[2017-05-30] MEDS: FAMOTIDINE 20 MG/2 ML VIAL IV PUSH SCH ×2 (05:57→18:00)
[2017-05-30] MEDS: ENOXAPARIN SODIUM 40 MG/0.4 ML SYRINGE SQ SCH (05:57)
[2017-05-30 05:59] LABS: BICARBONATE 20.7 MEQ/L (21.0-32.0); CALCIUM 7.3 MG/DL (8.5-10.1); CREATININE 1.71 MG/DL (0.50-1.00)
[2017-05-30] MEDS ORDERED: VANCOMYCIN 1 GM/200 ML PREMIX IV ONE (06:00)
[2017-05-30] MEDS: RESP: ALBUTEROL 2.5 MG/IPRATROPIUM 0.5 MG NEB (SCH) NEB ×4 (06:06→20:44)
[2017-05-30 06:20] LABS: CALCIUM-PROTEIN CORRECTED 7.8 MG/DL (8.5-10.1); TOTAL PROTEIN 6.2 GM/DL (6.4-8.2)
--- NOTE | 2017-05-30 07:11 | PD.ORT.PN ---
Subjective Subjective Remarks 81-year-old female with a past medical history significant for hypertension, Parkinson's disease, seizures and dementia presents to the emergency department for evaluation of the left hip fracture. The patient lives in a nursing facility and had a mechanical fall 4 days ago. Objective Vitals Vital Signs Date Time Temp Pulse Resp B/P (MAP) Pulse Ox O2 Delivery O2 Flow Rate FiO2 05/30/17 06:27 95 92/48 05/30/17 04:00 98.4 86 20 83/51 (62) 05/30/17 04:00 86 05/30/17 02:01 97 Simple Mask 6.00 05/30/17 02:00 93 05/30/17 01:31 70/36 (47) 05/30/17 01:30 88 76/48 (57) 05/30/17 00:55 95 10.00 05/30/17 00:55 95 Simple Mask 10.00 05/30/17 00:55 Simple Mask 05/29/17 21:45 Room Air 05/29/17 21:30 90 16 108/55 (72) 92 Nasal Cannula 2.00 05/29/17 21:00 70 16 83/43 (56) 92 Nasal Cannula 2.00 05/29/17 18:28 91 Nasal Cannula 2.00 05/29/17 18:17 Room Air 05/29/17 18:11 98.5 97 16 103/55 (71) Result Diagram: 05/30/17 0511 05/30/17 0511 Other Results Laboratory Tests Test 05/29/17 18:20 Prothromb Time International Ratio 1.1 RATIO Prothrombin Time 10.9 SEC (9.8-11.6) Imaging Last [address] 05/30/17 0000 Signed Impressions: Service Date/Time: Tuesday, May 30, 2017 01:17 - CONCLUSION: No acute disease. Steven Hunt MD Chest X-Ray 05/30/17 0000 Signed Impressions: Service Date/Time: Tuesday, May 30, 2017 01:40 - CONCLUSION: Diffuse bilateral infiltrates. Steven Hunt MD Hip and Pelvis X-Ray 05/29/17 1821 Signed Impressions: Service Date/Time: May 18:37 - CONCLUSION: Acute subcapital fracture involving the left proximal femur. Manuel Cardona MD Chest X-Ray 05/29/17 1821 Signed Impressions: Service Date/Time: May 18:37 - CONCLUSION: 1. Bilateral pulmonary infiltrates consistent with moderate pulmonary edema versus pneumonia. Clinical correlation is recommended. 2. Degenerative changes and scoliosis of the thoracolumbar spine. Manuel Cardona MD Objective Remarks Patient is confused and in restraints. No pain with range of motion of shoulder elbow wrist. She is able to extend her fingers and make a fist. Right lower extremity: No pain with hip knee or ankle range of motion. Intact distal pulses and capillary refills Left lower extremity: Pain to palpation and movement of hip. No pain to palpation of knee or ankle. Intact distal pulses and capillary refills. Left hip marked for surgery Assessment & Plan Assessment and Plan Left subcapital femur fracture Medical care at this point. If stable for surgery left hip hemiarthroplasty is appropriate repair. Nothing by mouth Consents on chart. Sign consents. Surgery today if stable, if not this weekend when cleared. Bedrest at this point After further discussion with chief sustainability officer and family members, in light of patient's medical instability and terminal nature of her heart disease and respiratory issues, family has decided for palliative care and hospice. At this point no further orthopedic intervention is necessary or planned. If the patient has a drastic change in health and further intervention is needed reconsult orthopedics for intervention. Gab Alvarenga Jr. May 30, 2017 07:10
[2017-05-30 08:06] LABS: TROPONIN I 0.29 NG/ML (0.02-0.05)
--- NOTE | 2017-05-30 08:17 | MB ---
cc: SHELBY CARRILLO DATE OF CONSULTATION 05/30/2017 REASON FOR CONSULTATION Left femoral neck fracture. HISTORY OF PRESENT ILLNESS Evelyn is an 81-year-old female who has multiple medical problems. She has hypertension, seizure disorder, Parkinson's disease and dementia. She lives in a skilled nursing. She had a fall resulting in left hip pain. The patient presented to the emergency room where x-rays revealed a displaced left femoral neck fracture. She was initially taken to the orthopedic floor. She subsequently developed respiratory distress and was transferred to the intensive care unit. She is currently confused but awake in the intensive care unit. No other history is available from the patient. PAST MEDICAL HISTORY ILLNESSES 1. Hypertension. 2. Parkinson's disease. 3. Seizure. 4. Dementia. SURGERIES Unknown. MEDICATIONS Please see list of inpatient medications. This was reviewed. This includes: 1. Sinemet. 2. Mirtazapine. 3. Tylenol. 4. Sertraline. 5. Dilantin. 6. Lisinopril. 7. Donepezil. FAMILY HISTORY Unobtainable secondary to dementia. SOCIAL HISTORY Unobtainable. She does live in a skilled nursing. REVIEW OF SYSTEMS Unobtainable. PHYSICAL EXAMINATION GENERAL: The patient is an 81-year-old female who is confused. She appears well-developed, well-nourished. She is having some labored breathing. VITAL SIGNS: Temperature 98.4, pulse 86, respirations 95, blood pressure 92/48. O2 sat is 97% on 6 liters face mask. HEAD: The patient is normocephalic. Pupils are equal. NECK: Soft, nontender. Trachea is midline. ABDOMEN: Soft, nontender, nondistended. EXTREMITIES: Examination of bilateral upper extremities reveals no obvious pain or deformity with shoulder, elbow or wrist motion. She has good capillary refill in her fingers. Skin is intact to both hands. Radial pulses are palpable. Examination of right leg reveals no obvious pain or deformity with hip, knee or ankle motion. Skin is intact. Dorsalis pedis pulse is palpable. Examination of left leg reveals pain with any hip motion. Skin is intact. She has no obvious deformity around her knee, tibia or ankle. Skin is intact. Dorsalis pedis pulse is palpable. X-RAYS X-rays of pelvis were reviewed. X-rays reveal a displaced left femoral neck fracture. LABORATORY The patient has a white blood cell count of 10.3, hemoglobin of 10.8 and hematocrit of 31.0. INR is 1.1. BUN is 41 and creatinine is 1.71. IMPRESSION 1. Dementia. 2. Osteoporosis. 3. Hypotension. 4. Respiratory distress. 5. Displaced left femoral neck fracture. PLAN At this point options would include surgical treatment including left hip hemiarthroplasty. The patient is not an ideal surgical candidate and is currently not stable for surgery. The patient's only other option would be comfort care for pain management. Given the patient's overall medical condition this may be considered. Will try to communicate with the intensive care physician as well as the family on the direction that would be best for the patient's care. Risks of surgery include bleeding, infection, injuries to arteries, nerves and blood vessels, hip dislocation, leg length discrepancies, fracture of femur, as well as medical complications including blood clot, stroke, heart attack and . A mid-level provider in my office, nurse practitioner or PA, may see this patient on a follow-up basis and continue to implement the objective of this plan including: Starting or adjusting medications, injections of muscle, tendon, bursa or joints, cast application, orthotic or brace application, physical therapy, further radiographic studies including x-ray, MRI, CT, ultrasounds or bone scan, vascular studies, neurologic studies, or other specialist consultations, and proceeding with surgical management as appropriate. MD JEROME Estrella/ALEA /7:07 AM /8:00 AM
[2017-05-30] MEDS: MAGNESIUM OXIDE 400 MG TAB PO SCH (09:00)
[2017-05-30] MEDS ORDERED: LISINOPRIL 10 MG TAB PO SCH (09:00)
[2017-05-30] MEDS: DOCUSATE SODIUM 50 MG/SENNA 8.6 MG TAB PO SCH ×2 (09:00→20:47)
[2017-05-30] MEDS: SERTRALINE HCL 50 MG TAB PO SCH (09:00)
[2017-05-30] MEDS: SODIUM CHLORIDE 0.9% FLUSH 10 ML FLUSH IV FLUSH SCH ×2 (09:04→20:47)
[2017-05-30] MEDS ORDERED: TAB-TAB PO (10:56)
--- NOTE | 2017-05-30 11:35 | HHI.CCPN ---
Subjective Remarks/Hospital Course Patient is a 81-year-old female with a past medical history significant for hypertension, seizure disorder, Parkinson's disease, and dementia presented to the emergency department for left hip pain. Apparently patient had [facility]. X-ray hip showed acute subcapital fracture involving the left proximal femur. Patient was admitted to the hospitalist service. A Halicat was called at about 0130 today due to AMS and lethargy, and hypotension. 1L NS bolus given and and she was transferred to the unit. Transiently responded to fluid bolus, but became hypotension again. Additional fluid boluses were given. Chest x-ray showed bilateral diffuse infiltrates, and UA showed evidence of UTI. Patient was started on Rocephin and azithromycin by the hospitalist. Critical care medicine was consulted at about 0445 AM due to persistent hypotension/septic shock. I evaluated the patient in the ICU. She appears ill, tachypneic. Hypotensive after 3 L boluses. Chest x-ray shows diffuse infiltrates. I will clarify CODE STATUS with family, patient may need endotracheal intubation and further resuscitation , and also central line placement. I have DC'd Rocephin and started on Zosyn. Give 1 dose of vancomycin and continue azithromycin. 05/30: Lengthy discussion with daughter at bedside and review of advanced directive. Family requests DNR comfort measures only. Respiratory status is deteriorating and family does not want intubation or mechanical ventilation. Objective Vital Signs Date Time Temp Pulse Resp B/P (MAP) Pulse Ox O2 Delivery O2 Flow Rate FiO2 05/30/17 10:00 97 05/30/17 08:00 98.1 20 96/49 (65) 88 05/30/17 07:55 Simple Mask 8.00 Intake and Output 05/30/17 05/30/17 05/31/17 08:00 16:00 00:00 Output Total 300 ml Balance -300 ml Result Diagram: 05/30/17 0511 05/30/17 0511 Other Results Laboratory Tests Test 05/30/17 01:05 05/30/17 05:09 Blood Gas Puncture Site RT RADIAL RT RADIAL Blood Gas Patient Temperature 98.6 98.6 Blood Gas HCO3 18 mmol/L (22-26) 17 mmol/L (22-26) Blood Gas Base Excess -6.2 mmol/L (-2-2) -8.2 mmol/L (-2-2) Blood Gas Oxygen Saturation 91 % (90-100) 89 % (90-100) Arterial Blood pH 7.40 (7.380-7.420) 7.32 (7.380-7.420) Arterial Blood Partial Pressure CO2 29 mmHg (38-42) 33 mmHg (38-42) Arterial Blood Partial Pressure O2 72 mmHg (61-120) 67 mmHg (61-120) Arterial Blood Oxygen Content 13.8 Vol % (12.0-20.0) 12.5 Vol % (12.0-20.0) Arterial Blood Carboxyhemoglobin 2.1 % (0-4) 1.6 % (0-4) Arterial Blood Methemoglobin 0.7 % (0-2) 0.7 % (0-2) Blood Gas Hemoglobin 10.7 G/DL (12.0-16.0) 10.0 G/DL (12.0-16.0) Oxygen Delivery Device SIMPLE MASK SM Blood Gas Liter Flow 10 L/M 6 L/M Imaging CXR bilateral diffuse infiltrates Objective Remarks GENERAL: Thin, female lying in bed. Tachypneic. In persistent moderate distress SKIN: No rashes, ecchymoses or lesions. Warm and dry. HEAD: Atraumatic. Normocephalic. EYES: Pupils pinpoint. No injection or drainage. ENT: Nose without bleeding. Airway patent. NECK: Trachea midline. NRBM, airway patent. CARDIOVASCULAR: Regular rate and rhythm without murmurs, gallops, or rubs. Hypotensive. + JVD. RESPIRATORY: Bilateral Rales and rhonchi. Tachypneic with use of accessory muscles GASTROINTESTINAL: Abdomen soft, non-tender, nondistended. Quiet. MUSCULOSKELETAL: Extremities without clubbing, cyanosis, or edema. L hip tender to movements. NEUROLOGICAL: Awake, follows commands x 4 limbs. Does not answer questions. Intermittently tracks but clearly confused. A/P Assessment and Plan ASSESSMENT: Septic shock Acute hypoxemic respiratory failure Healthcare associated pneumonia UTI Acute metabolic encephalopathy Metabolic acidosis Acute kidney failure Acute left hip fracture Parkinson's disease Seizure disorder Dementia PLAN: NEURO: - Metabolic encephalopathy most likely secondary to sepsis - Monitor neuro status closely - Continue Dilantin and Sinemet RESP: - Nasal cannula oxygen to keep saturation more than 90% - DuoNeb every 6 hours scheduled and when necessary - Sputum culture, check influenza - Broad-spectrum antibiotics with Zosyn and azithromycin CV: - Normal saline IV fluids 4 L bolus given - Check lactic acid - Bicarbonate 1 amp IV push followed by bicarbonate infusion at 100 ML per hour -completed. GI: - Nothing by mouth except meds - IV famotidine : - Monitor renal function closely. Place Hardy catheter. - Monitor intake and output strictly ID: - IV vancomycin 1GM x1. Discontinue ceftriaxone, started Zosyn renally dosed and continue azithromycin - Urine blood and sputum culture requested. Check for influenza HEME: - Monitor CBC, CMP MSK: - Left hip fracture: Patient not stable for surgical intervention at this time - Cancel surgery. ENDO: - Electrolyte replacement per protocol PROPH: - Bilateral lower extremity SCDs. Lovenox/Famotidine LINES: Utilize peripheral IVs, central line if needed Overall impression: Patient is at this time critically ill with multiorgan failure. Family has produced an advanced directive which precludes further aggressive intervention in this prison resident who is already wheelchair bound. Critical Care 44 mins aside from procedures Vicente Slaughter MD May 30, 2017 11:35
--- NOTE | 2017-05-30 19:31 | EKG ---
Date Performed: 05/29/2017 Time Performed: 18:19:37 PTAGE: 81 years EKG: Sinus rhythm Left axis deviation INCOMPLETE RIGHT BUNDLE BRANCH BLOCK LEFT ANTERIOR FASCICULAR BLOCK Since the pr ior tracing, there has been no significant change ABNORMAL ECG PREVIOUS TRACING : 01/31/2017 15.30 DOCTOR: Pedro Thompson Interpretating Date/Time 05/30/2017 19:30:11
[2017-05-30] MEDS: MORPHINE SULFATE 2 MG/ML INJ IV PUSH PRN (19:49)
[2017-05-30] MEDS: PHENYTOIN SODIUM 100 MG CAP PO SCH (20:46)
[2017-05-30] MEDS: MIRTAZAPINE 15 MG TAB PO SCH (20:46)
[2017-05-30] MEDS: DONEPEZIL HCL 5 MG TAB PO SCH (20:47)
[2017-05-31] VITALS (11 sets, daily range): BP systolic 105–186; BP diastolic 62–82; PULSE 88–112; RESP 28–42; TEMP 98–98.9; O2SAT 84–99
[2017-05-31] MEDS: AZITHROMYCIN INJ 500 MG in SODIUM CHLOR 0.9% 250 ML INJ 250 ML IV SCH (02:49)
[2017-05-31] MEDS: RESP: ALBUTEROL 2.5 MG/IPRATROPIUM 0.5 MG NEB (SCH) NEB ×4 (03:41→21:11)
[2017-05-31] MEDS: ENOXAPARIN SODIUM 40 MG/0.4 ML SYRINGE SQ SCH (05:25)
[2017-05-31] MEDS: CARBIDOPA/LEVODOPA 25 MG/250 MG TAB PO SCH ×4 (05:25→22:00)
[2017-05-31] MEDS: PIPERACIL-TAZO 3.375 GM PREMIX 50 ML IV SCH ×3 (05:25→20:34)
[2017-05-31] MEDS: FAMOTIDINE 20 MG/2 ML VIAL IV PUSH SCH ×2 (05:26→17:19)
[2017-05-31] MEDS: MORPHINE SULFATE 2 MG/ML INJ IV PUSH PRN ×5 (05:48→23:18)
--- NOTE | 2017-05-31 06:51 | MG ---
cc: SREEKANTH CHATTERJEE MD Lab No: [id number] Date: 05/30/2017 Age: 81 Sex: F Race: DATE OF : 1935 HISTORY: 81-year-old female history of lethargy, mental status changes. Posterior rhythm demonstrates 3 to 4 Hz activity, 150 microvolts with frontal high-frequency myogenic artifact occurring off and on during her recording. Limited driving with photic stimulation. Single lead EKG showing sinus rhythm. INTERPRETATION Moderate encephalopathy. Clinical correlation. Sreekanth Chatterjee MD MG/ /9:10 PM /6:30 AM
--- NOTE | 2017-05-31 08:23 | HHI.CCPN ---
Subjective Remarks/Hospital Course Patient is a 81-year-old female with a past medical history significant for hypertension, seizure disorder, Parkinson's disease, and dementia presented to the emergency department for left hip pain. Apparently patient had sustained a mechanical fall at the care home about 4 days ago. X-ray hip showed acute subcapital fracture involving the left proximal femur. Patient was admitted to the hospitalist service. A Halicat was called at about 0130 today due to AMS and lethargy, and hypotension. 1L NS bolus given and and she was transferred to the unit. Transiently responded to fluid bolus, but became hypotension again. Additional fluid boluses were given. Chest x-ray showed bilateral diffuse infiltrates, and UA showed evidence of UTI. Patient was started on Rocephin and azithromycin by the hospitalist. Critical care medicine was consulted at about 0445 AM due to persistent hypotension/septic shock. I evaluated the patient in the ICU. She appears ill, tachypneic. Hypotensive after 3 L boluses. Chest x-ray shows diffuse infiltrates. I will clarify CODE STATUS with family, patient may need endotracheal intubation and further resuscitation , and also central line placement. I have DC'd Rocephin and started on Zosyn. Give 1 dose of vancomycin and continue azithromycin. 05/30: Lengthy discussion with daughter at bedside and review of advanced directive. Family requests DNR comfort measures only. Respiratory status is deteriorating and family does not want intubation or mechanical ventilation. 05/31: Breathing with acceptable comfort. Moderate pulmonary congestion. Awiting family decision about hospice vs aggressive care. Objective Vital Signs Date Time Temp Pulse Resp B/P (MAP) Pulse Ox O2 Delivery O2 Flow Rate FiO2 05/31/17 06:00 92 05/31/17 04:00 98.0 29 137/65 (89) 96 05/30/17 20:09 Simple Mask 10.00 Intake and Output 05/31/17 05/31/17 06/01/17 08:00 16:00 00:00 Output Total 550 ml Balance -550 ml Result Diagram: 05/30/17 0511 05/30/17 0511 Imaging CXR bilateral diffuse infiltrates Objective Remarks GENERAL: Thin, female lying in bed. Tachypneic. In persistent moderate distress SKIN: No rashes, ecchymoses or lesions. Warm and dry. HEAD: Atraumatic. Normocephalic. EYES: Pupils pinpoint. No injection or drainage. ENT: Nose without bleeding. Airway patent. NECK: Trachea midline. FM, airway patent. CARDIOVASCULAR: Regular rate and rhythm without murmurs, gallops, or rubs. Hypotensive. + JVD. RESPIRATORY: Bilateral Rales and rhonchi. Tachypneic with use of accessory muscles GASTROINTESTINAL: Abdomen soft, non-tender, nondistended. Quiet. MUSCULOSKELETAL: Extremities without clubbing, cyanosis, or edema. L hip tender to movements. NEUROLOGICAL: Awake, follows commands x 4 limbs. Does not answer questions. Intermittently tracks but clearly confused. A/P Assessment and Plan ASSESSMENT: Septic shock Acute hypoxemic respiratory failure Healthcare associated pneumonia UTI Acute metabolic encephalopathy Metabolic acidosis Acute kidney failure Acute left hip fracture, subcapital Parkinson's disease Seizure disorder Dementia PLAN: NEURO: - Metabolic encephalopathy most likely secondary to sepsis - Monitor neuro status closely - Continue Dilantin and Sinemet RESP: - Nasal cannula oxygen to keep saturation more than 90% - DuoNeb every 6 hours scheduled and when necessary - Sputum culture, check influenza - Broad-spectrum antibiotics with Zosyn and azithromycin CV: - Normal saline IV fluids 4 L bolus given - Check lactic acid - Bicarbonate 1 amp IV push followed by bicarbonate infusion at 100 ML per hour -completed. GI: - Nothing by mouth except meds - IV famotidine : - Monitor renal function closely. Place Hardy catheter. - Monitor intake and output strictly ID: - IV vancomycin 1GM x1. Discontinue ceftriaxone, started Zosyn renally dosed and continue azithromycin - Urine blood and sputum culture requested. Check for influenza HEME: - Monitor CBC, CMP MSK: - Left hip fracture: Patient not stable for surgical intervention at this time - Cancel surgery. ENDO: - Electrolyte replacement per protocol PROPH: - Bilateral lower extremity SCDs. Lovenox/Famotidine LINES: Utilize peripheral IVs, central line if needed Overall impression: Family has produced an advanced directive which precludes further aggressive intervention in this care home resident who is already wheelchair bound. Deciding on care plan. Vicente Slaughter MD May 31, 2017 08:23
[2017-05-31] MEDS: DOCUSATE SODIUM 50 MG/SENNA 8.6 MG TAB PO SCH ×2 (09:00→20:00)
[2017-05-31] MEDS ORDERED: FUROSEMIDE 20 MG/2 ML VIAL IV PUSH ONE (10:00)
[2017-05-31] MEDS: MAGNESIUM OXIDE 400 MG TAB PO SCH (10:13)
[2017-05-31] MEDS: SERTRALINE HCL 50 MG TAB PO SCH (10:13)
[2017-05-31] MEDS: SODIUM CHLORIDE 0.9% FLUSH 10 ML FLUSH IV FLUSH SCH ×2 (10:14→20:33)
[2017-05-31] MEDS: MIRTAZAPINE 15 MG TAB PO SCH ×2 (20:32→21:00)
[2017-05-31] MEDS: DONEPEZIL HCL 5 MG TAB PO SCH ×2 (20:32→21:00)
[2017-05-31] MEDS: PHENYTOIN SODIUM 100 MG CAP PO SCH ×2 (20:33→21:00)
[2017-06-01] VITALS: BP 149/67; PULSE 88; RESP 28; TEMP 98; O2SAT 93
[2017-06-01] MEDS: AZITHROMYCIN INJ 500 MG in SODIUM CHLOR 0.9% 250 ML INJ 250 ML IV SCH (03:10)
[2017-06-01] MEDS: MORPHINE SULFATE 2 MG/ML INJ IV PUSH PRN ×3 (03:11→11:57)
[2017-06-01 04:00] VITALS: BP 149/67; PULSE 88; RESP 28; TEMP 98.1; O2SAT 93
[2017-06-01] MEDS: RESP: ALBUTEROL 2.5 MG/IPRATROPIUM 0.5 MG NEB (SCH) NEB ×2 (04:23→09:22)
[2017-06-01 04:59] LABS: HEMATOCRIT 28.7 % (35.0-46.0); HEMOGLOBIN 9.9 GM/DL (11.6-15.3)
[2017-06-01 05:50] LABS: BICARBONATE 26.9 MEQ/L (21.0-32.0); CALCIUM 8.8 MG/DL (8.5-10.1); CREATININE 0.62 MG/DL (0.50-1.00)
[2017-06-01] MEDS: CARBIDOPA/LEVODOPA 25 MG/250 MG TAB PO SCH ×2 (06:00→14:00)
[2017-06-01] MEDS: ENOXAPARIN SODIUM 40 MG/0.4 ML SYRINGE SQ SCH (07:01)
[2017-06-01] MEDS: PIPERACIL-TAZO 3.375 GM PREMIX 50 ML IV SCH (07:01)
[2017-06-01] MEDS: FAMOTIDINE 20 MG/2 ML VIAL IV PUSH SCH (07:02)
[2017-06-01 08:00] VITALS: BP 124/67; PULSE 100; PULSE 102; RESP 27; TEMP 98.7; O2SAT 95
[2017-06-01] MEDS: SODIUM CHLORIDE 0.9% FLUSH 10 ML FLUSH IV FLUSH SCH (09:00)
[2017-06-01] MEDS: MAGNESIUM OXIDE 400 MG TAB PO SCH (09:00)
[2017-06-01] MEDS: SERTRALINE HCL 50 MG TAB PO SCH (09:00)
[2017-06-01] MEDS: DOCUSATE SODIUM 50 MG/SENNA 8.6 MG TAB PO SCH (09:00)
[2017-06-01 09:22] VITALS: O2SAT 96
[2017-06-01 12:00] VITALS: BP 155/88; PULSE 110; RESP 28; TEMP 99.1; O2SAT 98
[2017-06-01 12:03] VITALS: RESP 29
--- NOTE | 2017-06-01 15:23 | HHI.DS ---
Discharge Summary Admission Date May 29, 2017 at 20:58 Discharge Date: Jun 01, 2017 Admitting Diagnosis left hip fracture (1) Acute on chronic diastolic heart failure ICD Code: I50.33 - Acute on chronic diastolic (congestive) heart failure Diagnosis: Principal (2) Acute hypoxemic respiratory failure ICD Code: J96.01 - Acute respiratory failure with hypoxia Diagnosis: Principal (3) Hip fracture, left ICD Code: S72.002A - Fracture of unspecified part of neck of left femur, initial encounter for closed fracture Diagnosis: Principal Brief History 81-year-old female with a past medical history significant for hypertension, Parkinson's disease, seizures and dementia presents to the emergency department for evaluation of the left hip fracture. The patient lives in a nursing facility and had a mechanical fall 4 days ago. At the time of my examination, the patient will turn her head to verbal stimulation however does not answer questions. ER documentation, the patient reports she was walking backwards when she tripped and fell on her buttocks. She denies any head trauma or loss of consciousness. She has had left hip pain and inability to ambulate for the past 4 days. CBC/BMP: 06/01/17 0435 06/01/17 0435 Significant Findings Laboratory Tests Test 05/29/17 18:20 05/30/17 01:05 05/30/17 02:40 05/30/17 05:09 White Blood Count 13.8 TH/MM3 (4.0-11.0) Red Blood Count 3.46 MIL/MM3 (4.00-5.30) Hematocrit 34.6 % (35.0-46.0) Mean Corpuscular Volume 100.1 FL (80.0-100.0) Mean Corpuscular Hemoglobin 34.8 PG (27.0-34.0) Neutrophils (%) (Auto) 79.5 % (16.0-70.0) Monocytes (%) (Auto) 10.1 % (0.0-8.0) Neutrophils # (Auto) 10.9 TH/MM3 (1.8-7.7) Monocytes # (Auto) 1.4 TH/MM3 (0-0.9) Blood Urea Nitrogen 43 MG/DL (7-18) Creatinine 1.67 MG/DL (0.50-1.00) Random Glucose 111 MG/DL (74-106) Albumin 2.6 GM/DL (3.4-5.0) Alkaline Phosphatase 118 U/L (45-117) Aspartate Amino Transf (AST/SGOT) 40 U/L (15-37) Alanine Aminotransferase (ALT/SGPT) LESS THAN 6 U/L (10-53) Total Bilirubin 1.2 MG/DL (0.2-1.0) Sodium Level 131 MEQ/L (136-145) Estimat Glomerular Filtration Rate 29 ML/MIN (>89) Blood Gas HCO3 18 mmol/L (22-26) 17 mmol/L (22-26) Blood Gas Base Excess -6.2 mmol/L (-2-2) -8.2 mmol/L (-2-2) Arterial Blood Partial Pressure CO2 29 mmHg (38-42) 33 mmHg (38-42) Blood Gas Hemoglobin 10.7 G/DL (12.0-16.0) 10.0 G/DL (12.0-16.0) Urine Turbidity HAZY (CLEAR) Urine Protein 30 mg/dL (NEG-TRACE) Urine Occult Blood SMALL (NEG) Urine Leukocyte Esterase LARGE (NEG) Urine RBC 4 /hpf (0-3) Urine WBC 23 /hpf (0-5) Urine Bacteria MANY /hpf (NONE) Urine Mucus FEW /lpf (OCC) Blood Gas Oxygen Saturation 89 % (90-100) Arterial Blood pH 7.32 (7.380-7.420) Test 05/30/17 05:11 06/01/17 04:35 Red Blood Count 3.06 MIL/MM3 (4.00-5.30) Hemoglobin 10.8 GM/DL (11.6-15.3) 9.9 GM/DL (11.6-15.3) Hematocrit 31.0 % (35.0-46.0) 28.7 % (35.0-46.0) Mean Corpuscular Volume 101.2 FL (80.0-100.0) Mean Corpuscular Hemoglobin 35.2 PG (27.0-34.0) Neutrophils (%) (Auto) 82.4 % (16.0-70.0) Monocytes (%) (Auto) 8.3 % (0.0-8.0) Neutrophils # (Auto) 8.5 TH/MM3 (1.8-7.7) Lymphocytes # (Auto) 0.9 TH/MM3 (1.0-4.8) Blood Urea Nitrogen 41 MG/DL (7-18) 26 MG/DL (7-18) Creatinine 1.71 MG/DL (0.50-1.00) Random Glucose 122 MG/DL (74-106) 129 MG/DL (74-106) Total Protein 6.2 GM/DL (6.4-8.2) Calcium Level 7.3 MG/DL (8.5-10.1) Chloride Level 109 MEQ/L (98-107) 110 MEQ/L (98-107) Carbon Dioxide Level 20.7 MEQ/L (21.0-32.0) Estimat Glomerular Filtration Rate 29 ML/MIN (>89) Protein Corrected Calcium 7.8 MG/DL (8.5-10.1) Total Creatine Kinase 247 U/L (26-192) Creatine Kinase MB 4.4 NG/ML (0.5-3.6) Troponin I 0.29 NG/ML (0.02-0.05) B-Type Natriuretic Peptide 589 PG/ML (0-100) Imaging CXR - pulmonary edema Pelvis - left subcapital hip fracture PE at Discharge Weak with moderate tachypn Confused. Transfer Summary Patient has penitentiary dementia and an advanced directive indicating she would not want mechanical ventilation and artificial support. After lengthy discussion with daughter family has elected transfer to hospice. Hospital Course Patient is a 81-year-old female with a past medical history significant for hypertension, seizure disorder, Parkinson's disease, and dementia presented to the emergency department for left hip pain. Apparently patient had sustained a mechanical fall at the care home about 4 days ago. X-ray hip showed acute subcapital fracture involving the left proximal femur. Patient was admitted to the hospitalist service. A Halicat was called at about 0130 today due to AMS and lethargy, and hypotension. 1L NS bolus given and and she was transferred to the unit. Transiently responded to fluid bolus, but became hypotension again. Additional fluid boluses were given. Chest x-ray showed bilateral diffuse infiltrates, and UA showed evidence of UTI. Patient was started on Rocephin and azithromycin by the hospitalist. Critical care medicine was consulted at about 0445 AM due to persistent hypotension/septic shock. I evaluated the patient in the ICU. She appears ill, tachypneic. Hypotensive after 3 L boluses. Chest x-ray shows diffuse infiltrates. I will clarify CODE STATUS with family, patient may need endotracheal intubation and further resuscitation , and also central line placement. I have DC'd Rocephin and started on Zosyn. Give 1 dose of vancomycin and continue azithromycin. 05/30: Lengthy discussion with daughter at bedside and review of advanced directive. Family requests DNR comfort measures only. Respiratory status is deteriorating and family does not want intubation or mechanical ventilation. 05/31: Breathing with acceptable comfort. Moderate pulmonary congestion. Awiting family decision about hospice vs aggressive care. Pt Condition on Discharge: Deteriorating Discharge Disposition: Hospice/Med Facility Discharge Instructions DIET: Follow Instructions for: Soft Diet Activities you can perform: Non Weight Bearing Vicente Slaughter MD Jun 01, 2017 15:23
== END 2017-06-01 14:49 | disposition hospice, inpatient (51) | DRG 535 ==
LOC: NEPE 18:05 → NEDA 20:58 → N06A 21:41 → N03A 05-30 01:46
PROVIDERS: ADMIT Internal Medicine; ATTEND Internal Medicine
DX: S72.012A Unspecified intracapsular fracture of left femur, initial encounter for closed fracture (principal); A41.9 Sepsis, unspecified organism; J96.01 Acute respiratory failure with hypoxia; R65.21 Severe sepsis with septic shock; G93.41 Metabolic encephalopathy; J18.9 Pneumonia, unspecified organism; I50.33 Acute on chronic diastolic (congestive) heart failure; I11.0 Hypertensive heart disease with heart failure; N17.9 Acute kidney failure, unspecified; E87.2 Acidosis; N39.0 Urinary tract infection, site not specified; G20 Parkinson's disease; F02.80 Dementia in other diseases classified elsewhere, unspecified severity, without behavioral disturbance, psychotic disturbance, mood disturbance, and anxiety; G40.909 Epilepsy, unspecified, not intractable, without status epilepticus; K21.9 Gastro-esophageal reflux disease without esophagitis; F41.9 Anxiety disorder, unspecified; M81.0 Age-related osteoporosis without current pathological fracture; W01.0XXA Fall on same level from slipping, tripping and stumbling without subsequent striking against object, initial encounter; Y95 Nosocomial condition; Y93.01 Activity, walking, marching and hiking; Y92.129 Unspecified place in nursing home as the place of occurrence of the external cause; Z51.5 Encounter for palliative care; Z66 Do not resuscitate; Z78.1 Physical restraint status; Z88.2 Allergy status to sulfonamides; Z99.3 Dependence on wheelchair
CPT/HCPCS: 36600; 70450; 71045; 73502; 80048; 80053; 81001; 82550; 82552; 82805; 83605; 83880; 84155; 84484; 85014; 85018; 85025; 85610; 85730; 86850; 86900; 86901; 87040; 87077; 87086; 87186; 93005; 94640; 94664; 95819; J0456; J0696; J1650; J1940; J2270; J2310; J2543; J3370; J7030; J7050; J7070